=== PATIENT | male | born 1935 | race Caucasian/White ===

== ENCOUNTER 2018-04-17 09:53 | Day surgery (SDC) | payer MEDICARE, BC ==
[~2018-04-17] VITALS: Ht 177.8 cm; Wt 70.5 kg
[2018-04-17 10:03] VITALS: BP 181/74
[2018-04-17] MEDS ORDERED: fentaNYL/PF 50MCG/1 ML 2ML syringe ONE (10:32)
[2018-04-17] MEDS ORDERED: MIDAZolam 5mg/5ml vial ONE (10:33)
[2018-04-17] MEDS ORDERED: LIDOcaine Viscous 15ml cup ONE (10:33)
[2018-04-17] MEDS ORDERED: BUDE10.2 INH (10:38)
[2018-04-17] MEDS ORDERED: CLON-529 PO (10:39)
[2018-04-17] MEDS ORDERED: VERA240T PO (10:40)
[2018-04-17] MEDS ORDERED: LOVA40TA2 PO (10:40)
[2018-04-17] MEDS ORDERED: FINA5TAB11 PO (10:40)
[2018-04-17] MEDS ORDERED: LEVA15HF4 INH (10:41)
[2018-04-17] MEDS ORDERED: ASPI-1264 PO (10:41)
[2018-04-17 10:53] VITALS: BP 160/88
[2018-04-17 11:03] VITALS: BP 155/81
[2018-04-17 11:13] VITALS: BP 162/81
[2018-04-17 11:23] VITALS: BP 156/80
== END 2018-04-17 11:35 | disposition home or self-care (01) ==
LOC: GI LAB 09:53
PROVIDERS: ATTEND Internal Medicine Gastroenterology
DX: K31.7 Polyp of stomach and duodenum (principal); K31.89 Other diseases of stomach and duodenum; I10 Essential (primary) hypertension; J44.9 Chronic obstructive pulmonary disease, unspecified; Z99.81 Dependence on supplemental oxygen; Z85.828 Personal history of other malignant neoplasm of skin; Z87.891 Personal history of nicotine dependence; Z79.82 Long term (current) use of aspirin; Z79.899 Other long term (current) drug therapy; Z98.890 Other specified postprocedural states
CPT/HCPCS: 43239; 43251; G0500; J2250; J3010; J7030; 99152; A4620

== ENCOUNTER 2019-06-20 10:59 | Day surgery (SDC) | payer MEDICARE, BC ==
[2019-06-18 14:17] LABS: BASOPHILS % (AUTO) 0.5 % (0-1); EOSINOPHILS # (AUTO) 0.1 X10'3 (0-0.9); HEMATOCRIT 37.8 % (42.0-52.0); HEMOGLOBIN 13.1 g/dl (14.0-17.9); LYMPHOCYTES # (AUTO) 1.9 X10'3 (1.1-4.8); LYMPHOCYTES % (AUTO) 25.8 % (21-51); MEAN CORPUSCULAR HEMOGLOBIN 30.3 PG (27.0-31.0); MEAN CORPUSCULAR HGB CONC 34.6 g/dL (33.0-36.5); MEAN CORPUSCULAR VOLUME 87.6 FL (78-98); MEAN PLATELET VOLUME 7.6 FL (7.4-10.4); MONOCYTES # (AUTO) 0.6 X10'3 (0-0.9); MONOCYTES % (AUTO) 8.1 % (2-12); NEUTROPHILS # (AUTO) 4.7 X10'3 (1.8-7.7); NEUTROPHILS % (AUTO) 64.6 % (42-75); PLATELET COUNT 232 X10'3 (140-440); RED BLOOD COUNT 4.31 X10'6 (4.70-6.10); RED CELL DISTRIBUTION WIDTH 12.7 % (11.5-14.5); WHITE BLOOD COUNT 7.3 X10'3 (4.5-11.0)
[2019-06-18 14:24] LABS: PARTIAL THROMBOPLASTIN TIME 27 SECONDS (22-32)
[2019-06-18 14:27] LABS: ALANINE AMINOTRANSFERASE 25 U/L (12-78); ALBUMIN 3.4 G/DL (3.4-5.0); ALKALINE PHOSPHATASE 103 IU/L (46-116); ANION GAP 6 (8-16); ASPARTATE AMINO TRANSFERASE 25 U/L (10-37); BILIRUBIN,TOTAL 0.5 MG/DL (0.1-1.0); BLOOD UREA NITROGEN 10 MG/DL (7-18); BUN/CREATININE RATIO 14.7 (5.4-32.0); CALCIUM 8.5 MG/DL (8.5-10.1); CHLORIDE 104 MMOL/L (99-107); CREATININE 0.68 MG/DL (0.60-1.10); GLUCOSE 90 MG/DL (70-104); SODIUM 142 MMOL/L (135-145); TOTAL CARBON DIOXIDE 31.9 MMOL/L (24-32); TOTAL PROTEIN 6.8 G/DL (6.4-8.2); eGFR > 90 ML/MIN
[2019-06-20] VITALS (11 sets, daily range): BP systolic 129–154; BP diastolic 40–79
[~2019-06-20] VITALS: Ht 177.8 cm; Wt 71.1 kg
[~2019-06-20 10:59] MED LIST: ASPI-1264 PO; BUDE10.2 INH; CLON-529 PO; FINA5TAB11 PO; LEVA15HF4 INH; LOVA40TA2 PO; VERA240T PO
[2019-06-20] MEDS ORDERED: fentaNYL/PF 50MCG/1 ML 2ML syringe ONE ×2 (11:18→14:02)
[2019-06-20] MEDS ORDERED: midazolam 2 mg/2 ml injection ONE ×3 (11:18→14:04)
[2019-06-20] MEDS ORDERED: LIDOcaine 1% (10mg/ml)w/preservative injection 20ml MDV ONE (11:19)
[2019-06-20] MEDS ORDERED: iohexol 350 MG/ML 50ML vial IV ONE (11:19)
[2019-06-20] MEDS ORDERED: iohexol 350MG/ML 100ml bottle IV ONE (11:19)
[2019-06-20] MEDS ORDERED: normal saline 1,000 ML IV SCH (11:20)
[2019-06-20] MEDS ORDERED: nitroGLYCERIN 0.4mg SUBLingual tab SL PRN ×2 (11:20→14:40)
[2019-06-20] MEDS ORDERED: LORazepam 0.5 MG tablet PO PRN (11:20)
[2019-06-20] MEDS ORDERED: diphenhydrAMINE 25mg capsule PO PRN (11:20)
[2019-06-20] MEDS ORDERED: CLOP75TA15 PO (11:41)
[2019-06-20] MEDS ORDERED: NITR0.4T51 SL (11:41)
[2019-06-20] MEDS ORDERED: CAPT100T2 PO (11:41)
[2019-06-20] MEDS ORDERED: OMEP40CA13 PO (11:41)
[2019-06-20] MEDS ORDERED: nitroGLYCERIN-Tridil 50MG/D5W 250 ML IV ONE (13:36)
[2019-06-20] MEDS ORDERED: metoprolol tartrate 1mg/ml inj IV ONE (14:05)
[2019-06-20] MEDS ORDERED: normal saline 1000ml 1,000 ML IV SCH (14:35)
[2019-06-20] MEDS ORDERED: ondansetron/PF 4mg/2ml inj IV PRN (14:35)
[2019-06-20] MEDS ORDERED: HYDROcodone/acetaminophen 5mg/325mg tablet PO PRN (14:35)
[2019-06-20] MEDS ORDERED: proCHLORperazine 10 MG/2 ml inj IV PRN (14:40)
[2019-06-20] MEDS ORDERED: HYDROcodone/acetaminophen 10/325mg tab PO PRN (14:40)
[2019-06-20] MEDS ORDERED: OXAZEpam 15mg capsule PO PRN (14:40)
[2019-06-20] MEDS ORDERED: cloNIDine 0.1 mg tablet PO ONE (18:50)
[2019-06-20] MEDS ORDERED: hydrALAZINE 20mg/ml inj. IV PRN (18:50)
== END 2019-06-20 20:02 | disposition home or self-care (01) ==
LOC: SSTAY O 10:59
PROVIDERS: ATTEND Internal Medicine Cardiovascular Disease
DX: R94.39 Abnormal result of other cardiovascular function study (principal); I25.119 Atherosclerotic heart disease of native coronary artery with unspecified angina pectoris; K21.9 Gastro-esophageal reflux disease without esophagitis; E78.5 Hyperlipidemia, unspecified; I10 Essential (primary) hypertension; J44.9 Chronic obstructive pulmonary disease, unspecified; Z79.899 Other long term (current) drug therapy; Z87.891 Personal history of nicotine dependence; Z79.82 Long term (current) use of aspirin; Z79.01 Long term (current) use of anticoagulants
CPT/HCPCS: 36415; 71046; 80053; 85025; 85610; 85730; 93005; 93458; 94010; 99152; 99153; C1769; J1644; J2001; J2250; J3010; J7030; Q0163; Q9967; A6258; J3490

== ENCOUNTER 2021-06-30 12:48 | Emergency (ER) | payer MEDICARE, BC ==
[~2021-06-30] VITALS: Ht 177.8 cm; Wt 150.0 kg
[~2021-06-30 12:48] MED LIST changes: +CAPT100T2 PO; +CLOP75TA15 PO; +NITR0.4T51 SL; +OMEP40CA21 PO
[2021-06-30 14:05] VITALS: BP 114/64
[2021-06-30] MEDS ORDERED: SOTROVIMAB 500mg injection 500 MG in normal saline 100ml IV soln 100 ML IV ONE (14:50)
[2021-06-30] MEDS ORDERED: BUDE10.26 INH (16:37)
[2021-06-30] MEDS ORDERED: DEXA6TAB6 PO (16:37)
== END 2021-06-30 16:50 | disposition home or self-care (01) ==
LOC: ER 12:49
DX: U07.1 COVID-19 (principal); Z88.8 Allergy status to other drugs, medicaments and biological substances; Z79.01 Long term (current) use of anticoagulants; Z79.899 Other long term (current) drug therapy; Z79.82 Long term (current) use of aspirin
CPT/HCPCS: 71045; 99284; J3490; M0247; Q0247